=== PATIENT | male | born 1990 | race Caucasian/White ===

== ENCOUNTER 2017-03-24 16:16 | Emergency (ER) | payer OTHER ==
--- NOTE | ~2017-03-24 | ER ---
PATIENT'S NAME: NARGIS MCGRAW [facility] AGE: 26 Y [address] ROOM: [place] [address] LOCATION: [facility] ADMIT DATE: 03/24/2017 ER/Outpatient Report DISCHARGE DATE: 03/24/2017 FAMILY PHYSICIAN: PHYSICIAN, NO ATTENDING PHYSICIAN: Kade Mtz TIME SEEN: 1630 hours. HISTORY OF PRESENT ILLNESS: The patient is a 26-year-old male who said he was leading his horse with a rope when it reared up and its front foot came down across to his left anterior chest. He denies any shortness of breath or cough. IMMUNIZATIONS: Had tetanus within the last 5. ALLERGIES: AMOXICILLIN. HOME MEDICATIONS: None. PAST MEDICAL HISTORY: No chronic health issues. SOCIAL HISTORY: Smokes about 3/4 of pack. Denies alcohol. REVIEW OF SYSTEMS: GENERAL: Health good. HEAD/EENT: No complaints of head or neck pain. RESPIRATORY: No shortness of breath or cough. He has an abrasion over his left anterior chest where the hoof contacted his chest. GASTROINTESTINAL: No abdominal pain. MUSCULOSKELETAL: No back pain. OBJECTIVE: VITAL SIGNS: His blood pressure is 111/68, his temperature is 98, pulse 64, respirations 16, his O2 saturations 97%. GENERAL APPEARANCE: White male. He is alert, cooperative. LUNGS: Clear throughout. HEART: Rhythm appears regular. Exam of his chest shows a superficial abrasion and he is tender over the pectoral muscle. PATIENT'S NAME: YASEMIN [facility] AGE: 26 Y [address] ROOM: [place] [address] LOCATION: [facility] ADMIT DATE: 03/24/2017 ER/Outpatient Report DISCHARGE DATE: 03/24/2017 FAMILY PHYSICIAN: PHYSICIAN, NO ATTENDING PHYSICIAN: Kade Mtz X-RAYS: Chest, heart size appears normal. No evidence of any pneumo, rib detail also no fractures identified. ASSESSMENT: Abrasion/contusion, left anterior chest. PLAN: Recommended ice 10 to 15 minutes every couple hours. Advised to clean the abrasion with soap and water. Topical antibiotic. Ibuprofen 600 mg every 6 hours for the next 24-48 hours. The patient was given a note for work. Follow up if he has concerns. MOHINI DWYER FOR DO KARINA PEREZ/modl /[id number] d: 03/24/172311 t: 03/30/17 0914, OUTPATIENT REPORT
== END 2017-03-24 17:20 ==
LOC: GACC 16:16
DX: S20.212A Contusion of left front wall of thorax, initial encounter (principal); Z88.1 Allergy status to other antibiotic agents; Y93.52 Activity, horseback riding